=== PATIENT | male | born 1945 | race Caucasian/White ===

== ENCOUNTER 2019-04-15 18:46 | Emergency (ER) | payer OTHER, SELFPAY ==
[2019-04-15 18:58] VITALS: BP 181/75; PULSE 59; RESP 15; TEMP 37; O2SAT 97; BMI 24.3
[2019-04-15 19:25] LABS: Bacteria Urine None Seen
[2019-04-15 19:33] LABS: Culture Indicated Urine Cult Not Indicated; RBC Urine 5-10/HPF (0-5/HPF); Squamous Epithelial Cell Urine 0-1 /HPF (0-5/HPF); WBC Urine 0-1/HPF (0-5/HPF)
--- NOTE | 2019-04-15 19:57 | ED.ABDPAIN ---
HPI - Abdominal Pain General Chief Complaint: Abdominal Pain Stated Complaint: right side abd and back pain and testicle pain Time Seen by Provider: 04/15/19 19:51 Source: patient Mode of arrival: Family Vehicle Limitations: no limitations History of Present Illness HPI narrative: 74-year-old male here for evaluation of pain in his right flank that radiates to his right abdomen and down into his right groin. States that it started earlier this evening. Was a fairly sudden onset. States that he felt like he had to have a bowel movement when he sat down he could not go. He also feels like that if he urinates the pain is going to get worse. Did have some nausea with dry heaving. No fevers. No prior history kidney stones. No prior abdominal surgeries. No rashes. Has not tried anything for symptoms prior to arrival Related Data Previous Rx's Medication Instructions Recorded hydrocodone-acetaminophen [[place]] 1 tab PO Q4-6H PRN #10 tab 04/15/19 ondansetron 4 mg PO Q6H PRN #10 tab 04/15/19 Allergies Allergy/AdvReac Type Severity Reaction Status Date / Time Penicillins Allergy Verified 04/15/19 20:22 Review of Systems Constitutional Constitutional: Denies fever(s) Cardiovascular Cardiovascular: Denies chest pain and Denies dyspnea Respiratory Respiratory: Denies dyspnea Gastrointestinal Gastrointestinal: Reports abdominal pain, Denies change in stool character, Reports nausea and Reports vomiting Genitourinary Genitourinary: Reports dysuria, Reports urinary hesitancy and Denies urinary incontinence Musculoskeletal Musculoskeletal: Reports back pain, Denies myalgias and Denies arthralgias Integumentary/Breasts Skin/Breast: Denies rash Hematologic/Lymphatic Hematologic/Lymphatic: Denies easy bleeding and Denies easy bruising FORMERLY [facility], 1928–1983 Medical History Patient denies medical problems (Acute) Social History Smoking Status: Former smoker Social History Smoking Status: Former smoker Exam Initial Vital Signs Initial Vital Signs: Vital Signs Temperature 98.6 F 04/15/19 18:58 Pulse Rate 59 L 04/15/19 18:58 Respiratory Rate 15 04/15/19 18:58 Blood Pressure 181/75 H 04/15/19 18:58 Pulse Oximetry 97 04/15/19 18:58 Const General: cooperative, well developed and well groomed Orientation: alert, awake and oriented x3 Resp Effort & Inspection: normal respiratory effort Cardio Rate: regular rate GI Inspection: non-distended Palpation: soft, No firm and No tender Back/Spine/Pelvis Back: No CVA tenderness Skin Lesions: no lesions Rashes: no rashes Neuro General: alert and awake Cognition: normal cognition Speech: speech normal Extrem General: normal to inspection and capillary refill normal Psych Appearance: grossly normal and well kempt Course Orders Ordered: ED Orders 04/15/19 19:13 Urine Microscopic Stat 04/15/19 19:55 Complete Blood Count AUTO DIFF Stat Comprehensive Metabolic Panel Stat Lipase Stat 04/15/19 19:58 CT kidney ureter bladder (KUB) Stat Discontinued Medications Lidocaine HCl 5.3 ml/ Sodium (Chloride) 55.3 mls @ 331.8 mls/hr IV NOW ONE Stop: 04/15/19 19:59 Last Infusion: 04/15/19 20:50 Dose: 0 mls/hr Documented by: Admin: 04/15/19 20:40 Dose: 331.8 mls/hr Documented by: TAMANNA Ketorolac Tromethamine (Toradol) 30 mg IV NOW ONE Stop: 04/15/19 19:59 Last Admin: 04/15/19 20:12 Dose: 30 mg Documented by: GUICHO Ondansetron HCl (Zofran) 4 mg IV NOW ONE Stop: 04/15/19 19:59 Last Admin: 04/15/19 20:12 Dose: 4 mg Documented by: GUICHO Ondansetron HCl (Zofran Odt Prepack) 1 bottle MISC SEEINSTR ONE Stop: 04/15/19 21:34 Vital Signs Vital signs: Vital Signs - 8 hr 04/15/19 18:58 04/15/19 21:55 Temperature 98.6 F Pulse Rate 59 L 58 L Respiratory Rate 15 12 Blood Pressure 181/75 H 164/78 H Pulse Oximetry 97 99 MDM - Abdominal Pain Lab Data Attestation: I reviewed the patient's lab results. Result diagrams: 04/15/19 19:55 04/15/19 19:55 Labs: Lab Results 04/15/19 04/15/19 04/15/19 Range/Units 19:13 19:55 19:55 WBC 9.5 (4.5-11.0) X10^3/uL RBC 5.03 (4.5-5.9) X10^6/uL Hgb 15.7 (13.5-17.5) g/dL Hct 45.4 (41-53) % MCV 90.3 (80-100) fL MCH 31.2 (26-34) PG MCHC 34.5 (30-36) % RDW 13.0 (11.6-14.8) % Plt Count 292 (150-400) X10^3/uL Neut % (Auto) 71.9 (50-75) % Lymph % (Auto) 17.5 L (25-40) % [place] % (Auto) 7.6 (3-14) % Eos % (Auto) 2.3 (2-4) % Baso % (Auto) 0.7 (0-2) % Neut # (Auto) 6800 (3259-3788) /uL Lymph # (Auto) 1700 (1281-1740) /uL [place] # (Auto) 700 (0-900) /uL Eos # (Auto) 200 (0-450) /uL Baso # (Auto) 100 (0-100) /uL Sodium 139 (137-145) mmol/L Potassium 4.1 (3.4-5.1) mmol/L Chloride 102 (98-107) mmol/L Carbon Dioxide 28 (22-32) mmol/L BUN 20 (9-20) mg/dL Creatinine 0.90 (0.66-1.25) mg/dL Estimated GFR > 60.0 (>60) mL/min BUN/Creatinine Ratio 22.2 H (6-22) Glucose 98 (80-110) mg/dL Calcium 9.3 (8.4-10.2) mg/dL Total Bilirubin 0.6 (0.2-1.3) mg/dL AST 28 (17-59) IU/L ALT 20 L (21-72) IU/L Alkaline Phosphatase 58 (38-126) U/L Total Protein 8.0 (6.3-8.2) g/dL Albumin 4.5 (3.5-5.0) g/dL Globulin 3.5 (1.7-4.1) g/dL Albumin/Globulin Ratio 1.3 (1.0-2.8) Lipase 75 (23-300) U/L Urine RBC 5-10/hpf H (0-5/HPF) Urine WBC 0-1/hpf (0-5/HPF) Ur Squamous Epith Cells 0-1 /hpf (0-5/HPF) Urine Bacteria None seen (None) Ur Culture Indicated? Cult not indicated Point of care testing: Urine Dip Bedside Urine Glucose Negative Bedside Urine Bilirubin - Negative Bedside Urine Ketone - Negative Urine Specific [place] 1.025 Bedside Urine Occult Blood +++ Bedside Urine pH 5.5 Bedside Urine Protein - Negative Bedside Urine Urobilinogen - Negative Bedside Urine Nitrite - Negative Bedside Urine Leukocytes - Negative Esterase Imaging Data CT scan - abdomen: Radiologist's impression: [address] [address] [address] Scan Report Signed Patient: Adiel Souza#: [id number] : 7Acct:[id number] Age/Sex: 74 / MDate of Service: 04/15/19 Loc: ED Accession Number: [id number] Procedure: CT kidney ureter bladder (KUB) Ordering Provider: Desean Evans D.O. PROCEDURE: CT KIDNEY URETER BLADDER (KUB) INDICATIONS: Possible right-sided kidney stone TECHNIQUE: Noncontrast 5 mm thick sections acquired from the diaphragms to the symphysis. 5 mm thick coronal and sagittal reformats were then performed. For radiation dose reduction, the following was used: automated exposure control, adjustment of mA and/or kV according to patient size. COMPARISON: None. FINDINGS: Image quality: Excellent. Lung bases: Lung bases are clear. Heart size is normal. Urinary system: Right kidney: Minimal hydronephrosis. No renal stone. Right ureter: Mildly dilated to just above the base of the bladder, where there is a 2 mm or less ureteral stone. Left kidney: No stone or hydronephrosis. Left ureter: Unremarkable. Other solid organs: Liver is normal in size. Gallbladder is unremarkable. Pancreas is normal in contours. Spleen is normal in size. Calcified granulomata in the spleen. No adrenal nodules. Peritoneum and bowel: Unenhanced bowel loops demonstrate normal wall thickness and caliber. No free fluid or air. Sigmoid diverticulosis without evidence of diverticulitis. Nodes and vessels: No retroperitoneal or mesenteric adenopathy by size criteria. Aorta and inferior vena cava are normal in caliber. Atherosclerotic calcifications in the aorta. Bilateral internal iliac calcifications suggest possible diabetes. Abdominal wall: No ventral hernias. Pelvis: No free pelvic fluid. Small bilateral inguinal hernias containing fat. No adenopathy. Bones: No suspicious bony lesions. No vertebral body compression fractures. IMPRESSION: 1. There is a 2 mm or less distal right ureteral stone with mild dilatation of the right ureter and minimal right hydronephrosis. 2. No other renal stones or ureteral stones. 3. Atherosclerosis. 4. Sigmoid diverticulosis without evidence of diverticulitis. 5. Bilateral inguinal hernias containing fat. Dictated by: Maxx Pelayo M.D. on 04/15/2019 at 20:15 Approved by: aMxx Pelayo M.D. on 04/15/2019 at 20:20 MDM Narrative Medical decision making narrative: No signs of UTI, renal functions unremarkable, CT scan does show a 2 mm right UVJ stone. This does fit his history and physical exam. States he feels much better after medications received here in the ER. Will send home with symptom treatment. A long discussion with expected course of treatment and return precautions and follow-up instructions. He expressed understanding and agreement with plan. Discharge Plan Departure Patient Disposition: Home Clinical Impression: Renal colic on right side Discharge Date/Time: 04/15/19 21:56 Instructions: Kidney Stones (Alternative Therapy), Kidney Stones -- Adult Activity Restrictions/Additional Instructions: Take the medication as needed and as directed. Contact your primary provider for a follow-up. Return to the emergency department for any new symptoms to include fevers, inability to urinate, inability to tolerate oral intake, pain that is not controlled with the medications, or any other concerning symptoms Prescriptions: New ondansetron 4 mg tablet,disintegrating 4 mg PO Q6H PRN (Reason: nausea and vomiting) Qty: 10 RF: 0 hydrocodone-acetaminophen [[place]] 5-325 mg tablet 1 tab PO Q4-6H PRN (Reason: pain) Qty: 10 RF: 0
[2019-04-15 20:07] LABS: Add Manual Diff / Slide Review NO; Basophils Absolute Auto 100 /uL (0-100); Basophils Percent Auto 0.7 % (0-2); Eosinophils Absolute Auto 200 /uL (0-450); Eosinophils Percent Auto 2.3 % (2-4); Hematocrit 45.4 % (41-53); Hemoglobin 15.7 g/dL (13.5-17.5); Lymphocytes Absolute Auto 1700 /uL (1100-4500); Lymphocytes Percent Auto 17.5 % (25-40); Mean Corpuscular HGB Conc 34.5 % (30-36); Mean Corpuscular Hemoglobin 31.2 PG (26-34); Mean Corpuscular Volume 90.3 fL (80-100); Monocytes Absolute Auto 700 /uL (0-900); Monocytes Percent Auto 7.6 % (3-14); Neutrophils Absolute Auto 6800 /uL (1500-7000); Neutrophils Percent Auto 71.9 % (50-75); Platelet Count 292 X10^3/uL (150-400); Red Blood Cell Count 5.03 X10^6/uL (4.5-5.9); White Blood Cell Count 9.5 X10^3/uL (4.5-11.0)
[2019-04-15] MEDS: KETOROLAC 60 MG/2 ML VIAL 30 MG IV (20:12)
[2019-04-15] MEDS: ONDANSETRON 4 MG/2 ML INJ IV (20:12)
[2019-04-15 20:19] LABS: Alanine Aminotransferase 20 IU/L (21-72); Albumin 4.5 g/dL (3.5-5.0); Albumin Globulin Ratio 1.3 (1.0-2.8); Alkaline Phosphatase 58 U/L (38-126); Aspartate Aminotransferase 28 IU/L (17-59); BUN Creatinine Ratio 22.2 (6-22); Bilirubin Total 0.6 mg/dL (0.2-1.3); Blood Urea Nitrogen 20 mg/dL (9-20); Calcium 9.3 mg/dL (8.4-10.2); Carbon Dioxide 28 mmol/L (22-32); Chloride 102 mmol/L (98-107); Estimated Glomerular Filt Rate > 60.0 mL/min (>60); Globulin 3.5 g/dL (1.7-4.1); Glucose 98 mg/dL (80-110); HEMOLYSIS < 15 (0-50); Lipase 75 U/L (23-300); Potassium 4.1 mmol/L (3.4-5.1); Sodium 139 mmol/L (137-145)
[2019-04-15] MEDS: LIDOCAINE 2% 5.3 ML in SODIUM CHLORIDE 0.9% 50 ML 331.8 ML IV (20:40)
[2019-04-15 21:55] VITALS: BP 164/78; PULSE 58; RESP 12; O2SAT 99
== END 2019-04-15 21:56 | disposition home or self-care (01) ==
PROVIDERS: Emergency Provider Emergency Medicine
DX: N23 Unspecified renal colic (principal)
CPT/HCPCS: 36591; 74176; 80053; 81003; 81015; 83690; 85025; 96374; 96375; 99283; 99284; J1885; J2405